=== PATIENT | female | born 1945 | race Caucasian/White ===

== ENCOUNTER 2019-11-17 02:32 | Observation (INO) ==
[2019-11-17] MEDS ORDERED: NITROGLYCERIN SL 0.4 MG TABLET SL STA ×2 (03:01→04:24)
[2019-11-17 03:15] LABS: Basophils % 0.6 % (0.0-0.8); Eosinophils # 0.4 10*3/uL (0.0-0.87); Eosinophils % 5.9 % (0.00-10.9); Hematocrit 40.2 VOL% (35.7-47.0); Hemoglobin 12.7 GM/DL (12.0-16.0); Immature Granulocytes % 0.3 %; Immature Granulocytes Absolute 0.02 #; Lymphocytes # 1.5 10*3/uL (1.4-4.0); Lymphocytes % 23.1 % (21.3-54.2); Mean Corpuscular HGB Conc 31.6 GM/DL (32-36); Mean Corpuscular Volume 86.8 FL (87-102); Mean Platelet Volume 9.7 FL (9.6-12.0); Monocytes % 10.8 % (1.7-12.7); Neutrophils % 59.3 % (38.7-73.9); Platelet Count 256 T/CUMM (130-400); Red Blood Count 4.63 MC/CUMM (3.8-5.5); White Blood Count 6.5 T/CUMM (4-12)
[2019-11-17] MEDS ORDERED: NITROGLYCERIN 0.4 MG/HR PATCH TRANSDERM STA (03:15)
[2019-11-17 03:23] LABS: INR 0.9; PT Patient Result 9.7 SECS (9.6-12.2)
[2019-11-17 03:39] LABS: Alanine Aminotransferase 26 U/L (13-56); Albumin 3.4 G/DL (3.4-5.0); Alkaline Phosphatase 50 U/L (45-117); Aspartate Amino Transferase 19 U/L (0-37); Bilirubin,Total < 0.39 MG/DL (0.2-1.0); Blood Urea Nitrogen 21 MG/DL (7-18); Estimated Glom Filtration Rate 87 ML/MIN; Glucose 97 MG/DL (74-106); Osmolality,Calculated 281.4 MOS/KG (273-304)
[2019-11-17] MEDS ORDERED: ACETAMINOPHEN 325 MG TABLET PO PRN (04:34)
[2019-11-17] MEDS ORDERED: MORPHINE 4 MG/1 ML VIAL IV PRN (04:34)
[2019-11-17] MEDS ORDERED: ONDANSETRON 4 MG/2 ML VIAL IV PRN (04:34)
[2019-11-17] MEDS ORDERED: ENOXAPARIN 40 MG/0.4 ML SYRINGE SUBCUT SCH (05:00)
[2019-11-17 05:17] LABS: Risk Ratio 3.25; Thyroid Stimulating Hormone 2.83 uIU/ml (0.358-3.74); VLDL CHOLESTEROL 29.4 MG/DL
[2019-11-17] MEDS ORDERED: PANTOPRAZOLE 40 MG TABLET PO SCH (09:00)
[2019-11-17] MEDS ORDERED: ASPIRIN CHEW 81 MG TABLET PO SCH (10:00)
[2019-11-17] MEDS ORDERED: MELOXICAM 7.5 MG TABLET PO SCH (10:00)
[2019-11-17] MEDS ORDERED: atenoloL 25 MG TABLET PO SCH (10:00)
[2019-11-17] MEDS ORDERED: LOSARTAN 50 MG TABLET PO SCH (10:00)
[2019-11-17] MEDS ORDERED: SIMVASTATIN 10 MG TABLET PO SCH (10:00)
[2019-11-17] MEDS ORDERED: DULoxetine 30 MG CAPSULE PO SCH (10:00)
[2019-11-17] MEDS ORDERED: methylPREDNISolone SOD SUC 40 MG/1 ML VIAL IV ONE (16:07)
[2019-11-17 16:45] VITALS: BP 127/66
[2019-11-17] MEDS ORDERED: AZITHROMYCIN 250 MG TABLET PO ONE (18:00)
[2019-11-18] MEDS ORDERED: AZITHROMYCIN 250 MG TABLET PO SCH (09:00)
[2019-11-18] MEDS ORDERED: NON-FORMULARY MEDICATION (Omeprazole 40 MG) PO SCH (09:00)
[2019-11-18] MEDS ORDERED: CYANOCOBALAMIN 500 MCG TABLET PO SCH (09:00)
[2019-11-18] MEDS ORDERED: predniSONE 20 MG TABLET PO SCH (09:00)
[2019-11-18] MEDS ORDERED: MULTIVITAMIN (CENTRUM) TABLET PO SCH (09:00)
[2019-11-18] MEDS ORDERED: FOLIC ACID 1 MG TABLET PO SCH (09:00)
[2019-11-18] MEDS ORDERED: ERGOCALCIFEROL 50,000 UNIT CAPSULE PO SCH (09:00)
== END 2019-11-17 18:17 | disposition home or self-care (01) ==
LOC: N.EDINP 02:32 → N.ED 02:32 → SUATTDRO 04:23 → N.2W 04:46
PROVIDERS: ADMIT Internal Medicine; ATTEND Hospitalist